=== PATIENT | female | born 1965 | race Caucasian/White ===

== ENCOUNTER 2017-11-29 06:32 | Day surgery (SDC) | payer OTHER ==
[~2017-11-29] VITALS: Ht 167.6 cm; Wt 178.7 kg
[~2017-11-29 06:32] MED LIST: CARV25 PO; Cetirizine HCl10 MG PO; Flonase 0.05% N16 GM; GLYB2.5 PO; GLYB5 PO; Glyburide5 MG PO; IBUP800 PO; LISI20 PO; METF500 PO; Metformin HCl1000 MG PO; Mobic15 MG PO; NAPR500 PO; PIOG30 PO; PROM25 PO; Percocet 5-3251 EACH PO; Prednisone10 MG PO; SITA100T2 PO; TRAM50 PO; Zantac150 MG PO
== END 2017-11-29 23:53 | disposition home or self-care (01) ==
LOC: ORSCMMR 06:32
PROVIDERS: Internal Medicine Gastroenterology
PROC: 0DJD8ZZ Inspection of Lower Intestinal Tract, Via Natural or Artificial Opening Endoscopic (ICD-10-PCS; principal; 2017-11-29 08:00)
DX: Z12.11 Encounter for screening for malignant neoplasm of colon (principal); E11.9 Type 2 diabetes mellitus without complications; I10 Essential (primary) hypertension; Z79.84 Long term (current) use of oral hypoglycemic drugs; Z79.899 Other long term (current) drug therapy; E66.9 Obesity, unspecified; Z68.44 Body mass index [BMI] 60.0-69.9, adult
CPT/HCPCS: 82947; J2250; J7120

== ENCOUNTER 2018-02-07 06:22 | Day surgery (SDC) | payer OTHER ==
[~2018-02-07] VITALS: Ht 165.1 cm; Wt 162.4 kg
== END 2018-02-07 23:07 | disposition home or self-care (01) ==
LOC: ORSCMMR 06:22
PROVIDERS: Internal Medicine Gastroenterology
PROC: 0DBP8ZX Excision of Rectum, Via Natural or Artificial Opening Endoscopic, Diagnostic (ICD-10-PCS; principal; 2018-02-07 08:15)
PROC: 0DBK8ZX Excision of Ascending Colon, Via Natural or Artificial Opening Endoscopic, Diagnostic (ICD-10-PCS; principal; 2018-02-07 08:15)
DX: Z12.11 Encounter for screening for malignant neoplasm of colon (principal); K62.1 Rectal polyp; D12.2 Benign neoplasm of ascending colon; K64.8 Other hemorrhoids; K57.30 Diverticulosis of large intestine without perforation or abscess without bleeding; E66.01 Morbid (severe) obesity due to excess calories; Z68.43 Body mass index [BMI] 50.0-59.9, adult; E11.9 Type 2 diabetes mellitus without complications; I10 Essential (primary) hypertension; Z79.84 Long term (current) use of oral hypoglycemic drugs; Z79.899 Other long term (current) drug therapy
CPT/HCPCS: 82947; 88305; J2250; J7120

== ENCOUNTER 2018-06-21 07:36 | Emergency (ER) | payer OTHER ==
[~2018-06-21] VITALS: Ht 165.1 cm; Wt 148.8 kg
[2018-06-21] MEDS ORDERED: PANT40 PO (07:53)
[2018-06-21] MEDS ORDERED: Norco 5-325 Ta1 EACH PO (07:57)
[2018-06-21] MEDS ORDERED: CYCL10 PO (07:57)
[2018-06-21] MEDS ORDERED: IBUP800 PO (07:57)
== END 2018-06-21 08:25 | disposition home or self-care (01) ==
LOC: ER 07:36
DX: S29.9XXA Unspecified injury of thorax, initial encounter (principal); I10 Essential (primary) hypertension; E11.9 Type 2 diabetes mellitus without complications; I25.2 Old myocardial infarction; Z91.013 Allergy to seafood; Z79.899 Other long term (current) drug therapy; Z79.84 Long term (current) use of oral hypoglycemic drugs; X50.1XXA Overexertion from prolonged static or awkward postures, initial encounter
CPT/HCPCS: 96372; 99283; J2550; J3010

== ENCOUNTER 2018-12-14 10:28 | Emergency (ER) | payer OTHER ==
[~2018-12-14] VITALS: Ht 165.1 cm; Wt 125.2 kg
[~2018-12-14 10:28] MED LIST changes: +CALCIUM 600 +1 EAC2 PO; +CYCL10 PO; +Coreg12.5 MG PO; +FLINTSTONES GU1 EACH PO; +GLACIAL ACETIC A1 ML BOTHEARS; +METF500C PO; +Norco 5-325 Ta1 EACH PO; +PANT40 PO; +VITAMIN B122500 MCG PO; +ZESTRIL40 MG PO
[2018-12-14] MEDS ORDERED: CYCL10 PO (11:51)
[2018-12-14] MEDS ORDERED: Norco 5-325 Ta1 EACH PO (11:51)
== END 2018-12-14 11:59 | disposition home or self-care (01) ==
LOC: ER 10:28
DX: S00.03XA Contusion of scalp, initial encounter (principal); M54.5 Low back pain; I10 Essential (primary) hypertension; E11.9 Type 2 diabetes mellitus without complications; Z87.891 Personal history of nicotine dependence; Z91.013 Allergy to seafood; Z79.84 Long term (current) use of oral hypoglycemic drugs; Z79.899 Other long term (current) drug therapy; W18.30XA Fall on same level, unspecified, initial encounter
CPT/HCPCS: 70450; 72100; 96372; 99284-25; J1885

== ENCOUNTER 2018-12-16 10:46 | Day surgery (SDC) | payer OTHER ==
[~2018-12-16] VITALS: Ht 165.1 cm; Wt 126.8 kg
[2018-12-16] MEDS ORDERED: Hair, Skin & N1 EACH PO (12:07)
--- NOTE | 2018-12-16 15:13 | NUR ---
12/16/18 1513 Sowmya Anna PT REFUSING FOOD BUT HAS TAKEN H2O WITH HER MEDS. STATED PAIN WAS 10/10 BUT DOSES ON AND OFF. MOVES FINGERS WELL AND STATES HAND AND FINGERS ARE NUMB. OF PT AT HER SIDE. PT STATED NAUSEA WAS RESOLVED AND REFUSED SNACK W/ NORCO. REUSEABLE ICE PACK IN PLACE
== END 2018-12-16 15:55 | disposition home or self-care (01) ==
LOC: ORSCSDS 10:46
PROVIDERS: Orthopaedic Surgery
PROC: 0LX50ZZ Transfer Right Lower Arm and Wrist Tendon, Open Approach (ICD-10-PCS; principal; 2018-12-16 11:55)
PROC: 0RQS0ZZ Repair Right Carpometacarpal Joint, Open Approach (ICD-10-PCS; principal; 2018-12-16 11:55)
PROC: 01N50ZZ Release Median Nerve, Open Approach (ICD-10-PCS; principal; 2018-12-16 11:55)
DX: M18.11 Unilateral primary osteoarthritis of first carpometacarpal joint, right hand (principal); G56.01 Carpal tunnel syndrome, right upper limb; I10 Essential (primary) hypertension; E11.9 Type 2 diabetes mellitus without complications; G47.33 Obstructive sleep apnea (adult) (pediatric); E66.01 Morbid (severe) obesity due to excess calories; Z68.41 Body mass index [BMI] 40.0-44.9, adult; Z79.899 Other long term (current) drug therapy
CPT/HCPCS: 82947; C1713; J0330; J0690; J1100; J2250; J2405; J3010; J7120

== ENCOUNTER 2019-09-09 11:52 | Emergency (ER) | payer SELFPAY ==
[~2019-09-09] VITALS: Ht 165.1 cm; Wt 94.8 kg
[~2019-09-09 11:52] MED LIST changes: +Hair, Skin & N1 EACH PO; +TRAM50; -ZESTRIL40 MG PO; +Zocor20 MG PO
[2019-09-09] MEDS ORDERED: NAPR550 PO (14:39)
[2019-09-09] MEDS ORDERED: Norco 5-325 Ta1 EACH PO (14:39)
== END 2019-09-09 14:55 | disposition home or self-care (01) ==
LOC: ER 11:52
DX: S16.1XXA Strain of muscle, fascia and tendon at neck level, initial encounter (principal); S29.012A Strain of muscle and tendon of back wall of thorax, initial encounter; E11.9 Type 2 diabetes mellitus without complications; I10 Essential (primary) hypertension; I25.2 Old myocardial infarction; E66.9 Obesity, unspecified; V43.52XA Car driver injured in collision with other type car in traffic accident, initial encounter
CPT/HCPCS: 72040; 72070; 99284-25

== ENCOUNTER 2020-04-18 13:34 | Emergency (ER) | payer SELFPAY ==
[~2020-04-18] VITALS: Ht 165.1 cm; Wt 95.7 kg
[~2020-04-18 13:34] MED LIST changes: +NAPR550 PO
[2020-04-18 14:51] LABS: BASOPHILS ABSOLUTE AUTO 0.05 K/mm3 (0.00-0.23); BASOPHILS PERCENT AUTO 1 % (0-2); EOSINOPHILS ABSOLUTE AUTO 0.19 K/mm3 (0.00-0.68); EOSINOPHILS PERCENT AUTO 3 % (0-6); Hematocrit 41.7 % (33.0-51.0); Hemoglobin 14.2 g/dL (11.5-16.0); IMMATURE GRAN ABSOLUTE AUTO 0.01 K/mm3 (0.00-0.10); IMMATURE GRAN PERCENT AUTO 0 % (0-1); LYMPHOCYTES ABSOLUTE AUTO 2.74 K/mm3 (0.84-5.20); LYMPHOCYTES PERCENT AUTO 44 % (21-46); MONOCYTES ABSOLUTE AUTO 0.44 K/mm3 (0.16-1.47); MONOCYTES PERCENT AUTO 7 % (4-13); Mean Corpuscular HGB 30.3 pg (26.0-34.0); Mean Corpuscular HGB Conc 34.1 g/dL (31.5-36.5); Mean Corpuscular Volume 89 fL (80-100); Mean Platelet Volume 9.9 fL (9.1-12.4); NEUTROPHILS ABSOLUTE AUTO 2.74 K/mm3 (1.96-9.15); NEUTROPHILS PERCENT AUTO 44 % (41-73); Platelet Count 283 K/mm3 (150-400); RDW Coefficient Variation 12.1 % (11.7-14.2); RDW Standard Deviation 39.4 fL (35.1-46.3); Red Blood Cell Count 4.69 M/mm3 (3.80-5.20); White Blood Cell Count 6.17 K/mm3 (4.00-11.30)
[2020-04-18 15:13] LABS: Alanine Aminotransfer (ALT/SGP 21 U/L (12-78); Albumin, Blood 3.7 g/dL (3.4-5.0); Albumin/Globulin Ratio 1.1 (0.8-1.8); Alk Phos 79 U/L (50-136); Anion Gap 7 mmol/L (6-16); Aspartate Aminotrans (AST/SGOT 19 U/L (12-37); Bilirubin, Total 0.2 mg/dL (0.1-1.0); Blood Urea Nitrogen 21 mg/dL (8-24); Bun/Creatinine Ratio 32.8 (12.0-20.0); CO2, Blood 26 mmol/L (21-32); Chloride, Blood 110 mmol/L (98-108); Creatinine, Blood 0.64 mg/dL (0.40-1.00); Globulin, Blood 3.4 g/dL (2.2-4.0); Glomerular Filtration Rate >60 (60-); Glucose, Blood 105 mg/dL (70-99); Potassium, Blood 3.9 mmol/L (3.5-5.5); Sodium, Blood 143 mmol/L (136-145); Total Protein, Blood 7.1 g/dL (6.4-8.2); Troponin I <0.015 ng/mL (0.000-0.040)
[2020-04-18] MEDS ORDERED: MELO7.5 PO (15:34)
== END 2020-04-18 16:42 | disposition home or self-care (01) ==
LOC: ER 13:34
PROVIDERS: Physician Assistant
DX: R07.9 Chest pain, unspecified (principal); I10 Essential (primary) hypertension; E11.9 Type 2 diabetes mellitus without complications; Z79.899 Other long term (current) drug therapy; Z91.013 Allergy to seafood; Z87.891 Personal history of nicotine dependence
CPT/HCPCS: 36415; 71046; 80053; 84484; 85025; 93005; 93010; 99285-25